=== PATIENT | female | born 1940 | race Caucasian/White ===

== ENCOUNTER → 2021-07-07 10:39 | Outpatient (BNVA) | payer OTHER, SELFPAY | PROVIDERS: PCP Nurse Practitioner; Visit Provider Nurse Practitioner Family | DX: M25.561 Pain in right knee (principal); M25.562 Pain in left knee; M17.0 Bilateral primary osteoarthritis of knee | CPT/HCPCS: 99202 ==

== ENCOUNTER 2021-07-08 11:15 | Outpatient (REF) | payer OTHER, SELFPAY ==
--- NOTE | ~2021-07-08 | XR_ITS ---
EXAMINATION: BILATERAL KNEE. CLINICAL INFORMATION: Pain bilateral knee. COMPARISON: None TECHNIQUE: 4 views each knee. FINDINGS: Left knee: There is loss of tricompartment joint space with moderate periarticular osteophytosis most prominent in the lateral and the patellofemoral compartments. There is mild suprapatellar joint effusion. No loose body seen. No fracture or lytic process. Right knee: There is a moderate to severe loss of medial and vertebral compartment and mild loss of lateral compartment joint space with tricompartment periarticular spurring. No loose body seen no acute fracture or lytic process. XR/XR knee LT 4V IMPRESSION: Degenerative arthritic changes slightly more severe in left knee. Also there is mild suprapatellar joint effusion left knee. No acute fracture or dislocation either knee.
--- NOTE | ~2021-07-08 | XR_ITS ---
EXAMINATION: BILATERAL KNEE. CLINICAL INFORMATION: Pain bilateral knee. COMPARISON: None TECHNIQUE: 4 views each knee. FINDINGS: Left knee: There is loss of tricompartment joint space with moderate periarticular osteophytosis most prominent in the lateral and the patellofemoral compartments. There is mild suprapatellar joint effusion. No loose body seen. No fracture or lytic process. Right knee: There is a moderate to severe loss of medial and vertebral compartment and mild loss of lateral compartment joint space with tricompartment periarticular spurring. No loose body seen no acute fracture or lytic process. XR/XR knee RT 4V IMPRESSION: Degenerative arthritic changes slightly more severe in left knee. Also there is mild suprapatellar joint effusion left knee. No acute fracture or dislocation either knee.
== END 2021-07-08 11:16 | disposition home or self-care (01) ==
LOC: HO.XRAY 11:15
PROVIDERS: PCP Nurse Practitioner; Visit Provider Nurse Practitioner Family
DX: M17.0 Bilateral primary osteoarthritis of knee (principal)
CPT/HCPCS: 73564

== ENCOUNTER → 2021-07-17 11:59 | Outpatient (BNVA) | payer OTHER, SELFPAY | PROVIDERS: PCP Nurse Practitioner; Visit Provider Anesthesiology | DX: Z13.89 Encounter for screening for other disorder (principal) | CPT/HCPCS: Q3014 ==